=== PATIENT | female | born 2000 | race Caucasian/White ===

== ENCOUNTER 2024-03-23 12:20 | Emergency (ER) | payer BC, OTHER ==
[~2024-03-23] VITALS: Ht 165.1 cm; Wt 60.8 kg
[2024-03-23] MEDS ORDERED: IBUPROFEN 600 MG TABLET ONE (12:54)
[2024-03-23] MEDS: IBUPROFEN 600 MG TABLET PO ONE (12:57)
[2024-03-23 13:35] VITALS: BP 121/77; TEMP 97.9; O2SAT 98
== END 2024-03-23 14:00 | disposition home or self-care (01) ==
LOC: ER 12:31
DX: F13.10 Sedative, hypnotic or anxiolytic abuse, uncomplicated (principal); F14.10 Cocaine abuse, uncomplicated; F10.10 Alcohol abuse, uncomplicated; R41.0 Disorientation, unspecified; Y90.9 Presence of alcohol in blood, level not specified